=== PATIENT | female | born 1970 | race African-American/Black ===

== ENCOUNTER 2017-05-18 19:42 | Inpatient (IN) | payer MEDICARE, MEDICAID ==
[~2017-05-18] VITALS: Ht 157.5 cm; Wt 59.0 kg
[~2017-05-18 19:42] MED LIST: CINA30 PO; LABE300T PO; MINO2.5T19 PO; PANT40TA4 PO
[2017-05-18 21:13] LABS: BASOPHILS % 1.7 % (0.0-2.0); EOSINOPHILS % 7.7 % (0.0-5.0); HEMATOCRIT. 29.9 % (36.0-48.0); HEMOGLOBIN. 9.9 g/dL (12.0-16.0); LYMPHOCYTES % 8.2 % (20.0-50.0); MEAN CORPUSCULAR HEMOGLOBIN 31.5 pg (28.0-32.0); MEAN CORPUSCULAR VOLUME 94.9 fL (81.0-99.0); MEAN PLATELET VOLUME 7.4 fl (7.4-10.4); NEUTROPHILS % 72.4 % (40.0-76.0); PLATELET 187 x1000/uL (130-400); RED BLOOD CELL COUNT 3.15 mill/uL (4.2-5.4); RED CELL DISTRIBUTION WIDTH 15.8 % (11.6-14.6)
[2017-05-18 21:16] LABS: INR 1.2; PROTHROMBIN TIME 12.4 sec (9.4-11.6)
[2017-05-18 21:17] LABS: CHLORIDE 99 mEq/L (98-107)
[2017-05-18 21:22] LABS: CARBON DIOXIDE 29 mEq/L (21-32)
[2017-05-18 21:27] LABS: HCG SCREEN INDETERMINATE
[2017-05-18 21:28] LABS: TROPONIN I 0.45 ng/mL (0.00-0.04)
[2017-05-19] MEDS ORDERED: ASPIRIN 325MG TABLET PO ONE (01:00)
[2017-05-19 09:36] VITALS: BP 187/92
[2017-05-19] MEDS ORDERED: SEVE800T8 PO (10:25)
[2017-05-19] MEDS: ENOXAPARIN 30MG/0.3ML SYR SUBCUT SCH (10:30)
[2017-05-19] MEDS: DIPHENHYDRAMINE 50MG/ML VIAL IV PRN (11:07)
[2017-05-19 12:00] VITALS: BP 166/91
[2017-05-19 13:02] LABS: CREATINE KINASE MB FRACTION 3.2 ng/mL (0.5-3.6)
[2017-05-19 13:09] LABS: TROPONIN I 0.99 ng/mL (0.00-0.04)
[2017-05-19] MEDS: PANTOPRAZOLE 40MG DR TABLET PO SCH (13:43)
[2017-05-19] MEDS: MINOXIDIL 2.5MG TABLET PO SCH ×2 (14:39→21:15)
[2017-05-19] MEDS: AMLODIPINE 5MG TABLET PO SCH (14:39)
[2017-05-19 16:00] VITALS: BP 112/56
[2017-05-19] MEDS: CINACALCET HCL 30MG TABLET PO SCH (16:57)
[2017-05-19] MEDS: SEVELAMER CARBONATE 800 MG TABLET PO SCH (16:57)
[2017-05-19 20:00] VITALS: BP 134/71
[2017-05-19] MEDS: METOPROLOL TARTRATE 25MG TABLET PO SCH (21:13)
[2017-05-19] MEDS ORDERED: ONDANSETRON HCL 4MG/2ML VIAL IV PRN (21:45)
[2017-05-19] MEDS ORDERED: MORPHINE SULFATE 2 MG/ML CPJ (NOT FOR IM USE) IV PRN (21:45)
[2017-05-20] VITALS: BP 137/75
[2017-05-20] MEDS: AMLODIPINE 5MG TABLET PO SCH ×2 (00:35→08:29)
[2017-05-20] MEDS: DIPHENHYDRAMINE 50MG/ML VIAL IV PRN (00:36)
[2017-05-20 04:00] VITALS: BP 160/86
[2017-05-20 07:40] VITALS: BP 161/87
[2017-05-20] MEDS: PANTOPRAZOLE 40MG DR TABLET PO SCH (08:29)
[2017-05-20] MEDS: CINACALCET HCL 30MG TABLET PO SCH (08:29)
[2017-05-20] MEDS: SEVELAMER CARBONATE 800 MG TABLET PO SCH ×2 (08:29→12:59)
[2017-05-20] MEDS: ENOXAPARIN 30MG/0.3ML SYR SUBCUT SCH (08:30)
[2017-05-20] MEDS: METOPROLOL TARTRATE 25MG TABLET PO SCH (08:30)
[2017-05-20] MEDS: MINOXIDIL 2.5MG TABLET PO SCH (08:30)
[2017-05-20 08:31] LABS: BASOPHILS % 1.6 % (0.0-2.0); HEMATOCRIT. 29.3 % (36.0-48.0); HEMOGLOBIN. 9.6 g/dL (12.0-16.0); LYMPHOCYTES % 11.3 % (20.0-50.0); MEAN CORPUSCULAR HEMOGLOBIN 31.3 pg (28.0-32.0); MEAN PLATELET VOLUME 7.2 fl (7.4-10.4); MONOCYTES % 11.3 % (2.0-8.0); NEUTROPHILS % 66.8 % (40.0-76.0); PLATELET 216 x1000/uL (130-400); RED BLOOD CELL COUNT 3.08 mill/uL (4.2-5.4); RED CELL DISTRIBUTION WIDTH 15.6 % (11.6-14.6)
[2017-05-20] MEDS ORDERED: PANTOPRAZOLE 40MG DR TABLET PO SCH (09:00)
[2017-05-20 09:02] LABS: PHOSPHORUS 5.8 mg/dL (2.5-4.9)
[2017-05-20 09:26] LABS: TROPONIN I 0.9 ng/mL (0.00-0.04)
[2017-05-20 11:36] VITALS: BP 144/80
[2017-05-20 12:28] VITALS: BP 144/80
[2017-05-20] MEDS ORDERED: CALCIUM ACETATE 667MG CAPSULE PO SCH (12:40)
[2017-05-20 15:40] VITALS: BP 144/84
[2017-05-21] MEDS ORDERED: FAMOTIDINE 20MG TABLET PO SCH (09:00)
== END 2017-05-20 16:40 | disposition home or self-care (01) | DRG 308 ==
LOC: ER 19:42 → 8WST 05-19 00:58 → ENRESERV 05-19 07:02
PROVIDERS: ADMIT Internal Medicine Nephrology; ATTEND Internal Medicine Nephrology
DX: I47.1 Supraventricular tachycardia (principal); N18.6 End stage renal disease; I13.11 Hypertensive heart and chronic kidney disease without heart failure, with stage 5 chronic kidney disease, or end stage renal disease; I27.2 Other secondary pulmonary hypertension; M34.9 Systemic sclerosis, unspecified; N25.81 Secondary hyperparathyroidism of renal origin; J98.11 Atelectasis; Z60.2 Problems related to living alone; I44.1 Atrioventricular block, second degree; E83.39 Other disorders of phosphorus metabolism; D63.8 Anemia in other chronic diseases classified elsewhere; I73.00 Raynaud's syndrome without gangrene; M19.90 Unspecified osteoarthritis, unspecified site; Z99.2 Dependence on renal dialysis; Z88.8 Allergy status to other drugs, medicaments and biological substances; Z79.899 Other long term (current) drug therapy
CPT/HCPCS: 36415; 71010; 80048; 80053; 82553; 83735; 83970; 84100; 84484; 84703; 85025; 85610; 93005; 99285; J1200; J1650; J7050

== ENCOUNTER 2017-08-03 20:05 | Inpatient (IN) | payer MEDICARE, MEDICAID ==
[~2017-08-03] VITALS: Ht 157.5 cm; Wt 50.1 kg
[~2017-08-03 20:05] MED LIST changes: -LABE300T PO; +METO25TA6 PO; +SEVE800T8 PO
[2017-08-03] MEDS ORDERED: ASPIRIN 81MG TABLET PO ONE (20:45)
[2017-08-03] MEDS ORDERED: NITROGLYCERIN OINT 1GM/INCH UDPKT TD ONE (20:45)
[2017-08-03] MEDS ORDERED: LABETALOL HCL 20MG/4ML CARPUJECT IV ONE (20:45)
[2017-08-03 21:08] LABS: BASOPHILS % 2.9 % (0.0-2.0); EOSINOPHILS % 5.6 % (0.0-5.0); HEMATOCRIT. 28.7 % (36.0-48.0); HEMOGLOBIN. 9.6 g/dL (12.0-16.0); LYMPHOCYTES % 10.9 % (20.0-50.0); MEAN CORPUSCULAR HEMOGLOBIN 32.5 pg (28.0-32.0); MEAN CORPUSCULAR VOLUME 96.9 fL (81.0-99.0); MONOCYTES % 9.1 % (2.0-8.0); NEUTROPHILS % 71.5 % (40.0-76.0); PLATELET 280 x1000/uL (130-400); RED BLOOD CELL COUNT 2.96 mill/uL (4.2-5.4); RED CELL DISTRIBUTION WIDTH 16.9 % (11.6-14.6)
[2017-08-03 21:10] LABS: CHLORIDE 98 mEq/L (98-107)
[2017-08-03 21:14] LABS: INR 1.2; PROTHROMBIN TIME 12.6 sec (9.4-11.6)
[2017-08-03 21:20] LABS: CARBON DIOXIDE 33 mEq/L (21-32); ETHANOL BLOOD < 10 mg/dL
[2017-08-03 21:24] LABS: TROPONIN I 0.13 ng/mL (0.00-0.04)
[2017-08-03] MEDS ORDERED: LABETALOL HCL 20MG/4ML CARPUJECT IV NR (21:45)
[2017-08-03] MEDS ORDERED: DILTIAZEM HCL 125 MG in DEXT 5% WATER 100 ML IV ONE ×2 (21:45→22:00)
[2017-08-03 21:50] LABS: HCG SCREEN NEGATIVE
[2017-08-03 21:51] LABS: PARTIAL THROMBOPLASTIN TIME 103.6 sec (23.4-31.0)
[2017-08-03] MEDS ORDERED: DILTIAZEM HCL 5MG/ML 5ML VIAL IV ONE (23:00)
[2017-08-04] MEDS ORDERED: DIPHENHYDRAMINE 50MG/ML VIAL IV PRN (03:19)
[2017-08-04] MEDS ORDERED: MORPHINE SULFATE 2 MG/ML CPJ (NOT FOR IM USE) IV PRN (03:19)
[2017-08-04] MEDS ORDERED: LORAZEPAM 2MG/ML CPJ IV PRN (03:19)
[2017-08-04 06:26] LABS: CREATINE KINASE MB FRACTION 2.7 ng/mL (0.5-3.6)
[2017-08-04] MEDS ORDERED: DILTIAZEM HCL 125 MG in DEXT 5% WATER 100 ML IV ONE ×2 (06:45→17:00)
[2017-08-04] MEDS: ASPIRIN 81MG EC TABLET PO SCH (09:05)
[2017-08-04] MEDS: THIAMINE HCL 100MG TABLET PO SCH (09:05)
[2017-08-04 14:23] LABS: CREATINE KINASE MB FRACTION 2.6 ng/mL (0.5-3.6); PHOSPHORUS 4.9 mg/dL (2.5-4.9)
[2017-08-04] MEDS ORDERED: CINACALCET HCL 30MG TABLET PO NR (14:45)
[2017-08-04] MEDS ORDERED: PANTOPRAZOLE 40MG DR TABLET PO NR (14:45)
[2017-08-04] MEDS ORDERED: ENOXAPARIN 30MG/0.3ML SYR SUBCUT NR (14:45)
[2017-08-04] MEDS ORDERED: SEVELAMER CARBONATE 800 MG TABLET PO NR (14:45)
[2017-08-04] MEDS: HYDROCODONE/ACETAMINOPHEN 5/325MG TABLET PO PRN ×2 (15:45→21:21)
[2017-08-04] MEDS ORDERED: CLONIDINE 0.1MG TABLET PO PRN (16:15)
[2017-08-04 18:37] VITALS: BP 136/87
[2017-08-04 20:00] VITALS: BP 140/71
[2017-08-04 22:00] VITALS: BP 127/71
[2017-08-04] MEDS: DILTIAZEM HCL 125 MG in SODIUM CHLORIDE 0.9% 100 ML IV SCH (22:44)
[2017-08-05] VITALS (11 sets, daily range): BP systolic 113–168; BP diastolic 62–106
[2017-08-05] MEDS: PANTOPRAZOLE 40MG DR TABLET PO SCH (06:48)
[2017-08-05 07:12] LABS: BASOPHILS % 2.4 % (0.0-2.0); EOSINOPHILS % 6.9 % (0.0-5.0); HEMATOCRIT. 28.7 % (36.0-48.0); HEMOGLOBIN. 9.6 g/dL (12.0-16.0); LYMPHOCYTES % 9.8 % (20.0-50.0); MEAN CORPUSCULAR HEMOGLOBIN 32.5 pg (28.0-32.0); MEAN CORPUSCULAR VOLUME 96.9 fL (81.0-99.0); MEAN PLATELET VOLUME 7.6 fl (7.4-10.4); MONOCYTES % 7.7 % (2.0-8.0); NEUTROPHILS % 73.2 % (40.0-76.0); PLATELET 239 x1000/uL (130-400); RED BLOOD CELL COUNT 2.96 mill/uL (4.2-5.4); RED CELL DISTRIBUTION WIDTH 16.6 % (11.6-14.6)
[2017-08-05] MEDS: DILTIAZEM HCL 125 MG in SODIUM CHLORIDE 0.9% 100 ML IV SCH (08:15)
[2017-08-05] MEDS: SEVELAMER CARBONATE 800 MG TABLET PO SCH ×3 (08:20→17:37)
[2017-08-05] MEDS: CINACALCET HCL 30MG TABLET PO SCH ×2 (08:20→17:37)
[2017-08-05] MEDS: ASPIRIN 81MG EC TABLET PO SCH (08:20)
[2017-08-05] MEDS: THIAMINE HCL 100MG TABLET PO SCH (08:20)
[2017-08-05] MEDS: ENOXAPARIN 30MG/0.3ML SYR SUBCUT SCH (08:21)
[2017-08-05 08:27] LABS: TROPONIN I 0.14 ng/mL (0.00-0.04)
[2017-08-05 08:46] LABS: TROPONIN I 0.15 ng/mL (0.00-0.04)
[2017-08-05 11:33] LABS: *AMPHETAMINES SCREEN URINE NEGATIVE (NEGATIVE); *BARBITURATES SCREEN URINE NEGATIVE (NEGATIVE); *BENZODIAZEPINES SCREEN URINE NEGATIVE (NEGATIVE); *COCAINE SCREEN URINE NEGATIVE (NEGATIVE); CANNABINOID URINE SCREEN NEGATIVE (NEGATIVE); METHADONE URINE SCREEN NEGATIVE (NEGATIVE); OPIATES URINE SCREEN NEGATIVE (NEGATIVE); PHENCYCLIDINE URINE SCREEN NEGATIVE (NEGATIVE)
[2017-08-05] MEDS: DILTIAZEM HCL 60MG TABLET PO SCH (17:37)
[2017-08-05] MEDS: HYDROCODONE/ACETAMINOPHEN 5/325MG TABLET PO PRN (21:20)
[2017-08-06] VITALS (12 sets, daily range): BP systolic 133–176; BP diastolic 82–105
[2017-08-06] MEDS: DILTIAZEM HCL 60MG TABLET PO SCH ×4 (00:36→17:00)
[2017-08-06] MEDS: PANTOPRAZOLE 40MG DR TABLET PO SCH (06:23)
[2017-08-06 07:18] LABS: BASOPHILS % 2.5 % (0.0-2.0); EOSINOPHILS % 9.2 % (0.0-5.0); HEMATOCRIT. 25.2 % (36.0-48.0); HEMOGLOBIN. 8.4 g/dL (12.0-16.0); LYMPHOCYTES % 11.6 % (20.0-50.0); MEAN CORPUSCULAR HEMOGLOBIN 32.1 pg (28.0-32.0); MEAN PLATELET VOLUME 7.4 fl (7.4-10.4); MONOCYTES % 9.4 % (2.0-8.0); NEUTROPHILS % 67.3 % (40.0-76.0); PLATELET 209 x1000/uL (130-400); RED CELL DISTRIBUTION WIDTH 16.5 % (11.6-14.6)
[2017-08-06] MEDS: SEVELAMER CARBONATE 800 MG TABLET PO SCH ×3 (07:53→16:59)
[2017-08-06] MEDS: ONDANSETRON HCL 4MG/2ML VIAL IV PRN (07:58)
[2017-08-06] MEDS: ASPIRIN 81MG EC TABLET PO SCH (08:00)
[2017-08-06] MEDS: CINACALCET HCL 30MG TABLET PO SCH ×2 (08:01→17:00)
[2017-08-06] MEDS: THIAMINE HCL 100MG TABLET PO SCH (08:01)
[2017-08-06] MEDS: ENOXAPARIN 30MG/0.3ML SYR SUBCUT SCH (08:03)
[2017-08-07] VITALS (12 sets, daily range): BP systolic 148–177; BP diastolic 87–127
[2017-08-07] MEDS: ONDANSETRON HCL 4MG/2ML VIAL IV PRN ×2 (00:26→14:22)
[2017-08-07] MEDS ORDERED: LORAZEPAM 0.5MG TABLET PO PRN (03:30)
[2017-08-07 06:18] LABS: EOSINOPHILS % 8.5 % (0.0-5.0); HEMATOCRIT. 26.1 % (36.0-48.0); HEMOGLOBIN. 8.8 g/dL (12.0-16.0); LYMPHOCYTES % 9.6 % (20.0-50.0); MEAN CORPUSCULAR HEMOGLOBIN 32.6 pg (28.0-32.0); MEAN CORPUSCULAR VOLUME 96.4 fL (81.0-99.0); MEAN PLATELET VOLUME 7.7 fl (7.4-10.4); MONOCYTES % 8.4 % (2.0-8.0); NEUTROPHILS % 71.5 % (40.0-76.0); PLATELET 198 x1000/uL (130-400); RED BLOOD CELL COUNT 2.71 mill/uL (4.2-5.4); RED CELL DISTRIBUTION WIDTH 16.6 % (11.6-14.6)
[2017-08-07] MEDS: SEVELAMER CARBONATE 800 MG TABLET PO SCH ×3 (07:40→16:52)
[2017-08-07] MEDS: FAMOTIDINE 20MG TABLET PO SCH (08:04)
[2017-08-07] MEDS: THIAMINE HCL 100MG TABLET PO SCH (08:04)
[2017-08-07] MEDS: CINACALCET HCL 30MG TABLET PO SCH ×2 (08:04→16:52)
[2017-08-07] MEDS ORDERED: METOPROLOL TARTRATE 25MG TABLET PO SCH (09:00)
[2017-08-07] MEDS: DILTIAZEM HCL 120MG CAPSULE CD 24HR PO SCH ×2 (10:29→21:13)
[2017-08-07] MEDS: METOPROLOL TARTRATE 50MG TABLET PO SCH (21:14)
[2017-08-08] VITALS (11 sets, daily range): BP systolic 143–172; BP diastolic 70–106
[2017-08-08 07:42] LABS: BASOPHILS % 1.9 % (0.0-2.0); EOSINOPHILS % 7.3 % (0.0-5.0); HEMATOCRIT. 27.7 % (36.0-48.0); HEMOGLOBIN. 9.2 g/dL (12.0-16.0); LYMPHOCYTES % 7.8 % (20.0-50.0); MEAN CORPUSCULAR HEMOGLOBIN 32.4 pg (28.0-32.0); MEAN CORPUSCULAR VOLUME 97.5 fL (81.0-99.0); MONOCYTES % 8.9 % (2.0-8.0); NEUTROPHILS % 74.1 % (40.0-76.0); PLATELET 206 x1000/uL (130-400); RED BLOOD CELL COUNT 2.84 mill/uL (4.2-5.4); RED CELL DISTRIBUTION WIDTH 16.9 % (11.6-14.6)
[2017-08-08] MEDS: CINACALCET HCL 30MG TABLET PO SCH ×2 (08:50→17:48)
[2017-08-08] MEDS: THIAMINE HCL 100MG TABLET PO SCH (08:50)
[2017-08-08] MEDS: DILTIAZEM HCL 120MG CAPSULE CD 24HR PO SCH ×2 (08:51→20:51)
[2017-08-08] MEDS: SEVELAMER CARBONATE 800 MG TABLET PO SCH ×3 (08:51→17:20)
[2017-08-08] MEDS: METOPROLOL TARTRATE 50MG TABLET PO SCH ×2 (08:52→20:51)
[2017-08-08] MEDS: FAMOTIDINE 20MG TABLET PO SCH (08:52)
[2017-08-08] MEDS: ONDANSETRON HCL 4MG/2ML VIAL IV PRN (13:35)
[2017-08-08] MEDS ORDERED: ACETAMINOPHEN 650MG/20.3ML UDC PO NR (17:30)
[2017-08-09] VITALS (10 sets, daily range): BP systolic 134–163; BP diastolic 67–99
[2017-08-09] MEDS: ONDANSETRON HCL 4MG/2ML VIAL IV PRN ×2 (03:00→15:42)
[2017-08-09] MEDS: ACETAMINOPHEN 650MG/20.3ML UDC PO PRN (03:01)
[2017-08-09] MEDS: SEVELAMER CARBONATE 800 MG TABLET PO SCH ×4 (07:20→17:21)
[2017-08-09] MEDS: DILTIAZEM HCL 120MG CAPSULE CD 24HR PO SCH ×2 (10:15→20:16)
[2017-08-09] MEDS: FAMOTIDINE 20MG TABLET PO SCH (10:15)
[2017-08-09] MEDS: THIAMINE HCL 100MG TABLET PO SCH (10:15)
[2017-08-09] MEDS: CINACALCET HCL 30MG TABLET PO SCH ×2 (10:16→17:00)
[2017-08-09] MEDS: METOPROLOL TARTRATE 50MG TABLET PO SCH ×2 (10:16→20:16)
[2017-08-09] MEDS: DIPHENOXYLATE/ATROPINE 2.5/0.025MG TABLET PO PRN (20:16)
[2017-08-10] VITALS (7 sets, daily range): BP systolic 145–198; BP diastolic 76–96
[2017-08-10] MEDS: CINACALCET HCL 30MG TABLET PO SCH ×2 (08:46→17:00)
[2017-08-10] MEDS: SEVELAMER CARBONATE 800 MG TABLET PO SCH ×3 (08:46→18:10)
[2017-08-10] MEDS: FAMOTIDINE 20MG TABLET PO SCH (08:46)
[2017-08-10] MEDS: THIAMINE HCL 100MG TABLET PO SCH (08:46)
[2017-08-10] MEDS: METOPROLOL TARTRATE 50MG TABLET PO SCH ×2 (09:00→20:12)
[2017-08-10] MEDS: DILTIAZEM HCL 120MG CAPSULE CD 24HR PO SCH ×2 (09:00→20:12)
[2017-08-10] MEDS: DIPHENOXYLATE/ATROPINE 2.5/0.025MG TABLET PO PRN (11:30)
[2017-08-10] MEDS: METRONIDAZOLE 500 MG PREMIX 100 ML IV SCH ×2 (14:00→20:11)
[2017-08-10] MEDS ORDERED: METRONIDAZOLE 500MG TABLET PO SCH (14:00)
[2017-08-10] MEDS: ONDANSETRON HCL 4MG/2ML VIAL IV PRN (20:11)
[2017-08-11] VITALS: BP 158/86
[2017-08-11] MEDS: ACETAMINOPHEN 650MG/20.3ML UDC PO PRN ×2 (02:19→12:03)
[2017-08-11] MEDS: DIPHENOXYLATE/ATROPINE 2.5/0.025MG TABLET PO PRN ×3 (02:19→21:09)
[2017-08-11] MEDS: ONDANSETRON HCL 4MG/2ML VIAL IV PRN ×3 (02:24→21:09)
[2017-08-11 04:00] VITALS: BP 153/82
[2017-08-11] MEDS: METRONIDAZOLE 500 MG PREMIX 100 ML IV SCH ×2 (05:35→14:21)
[2017-08-11 08:00] VITALS: BP 161/76
[2017-08-11] MEDS: DILTIAZEM HCL 120MG CAPSULE CD 24HR PO SCH ×2 (09:22→20:48)
[2017-08-11] MEDS: THIAMINE HCL 100MG TABLET PO SCH (09:23)
[2017-08-11] MEDS: FAMOTIDINE 20MG TABLET PO SCH (09:23)
[2017-08-11] MEDS: SEVELAMER CARBONATE 800 MG TABLET PO SCH ×3 (09:23→17:52)
[2017-08-11] MEDS: METOPROLOL TARTRATE 50MG TABLET PO SCH ×2 (09:23→20:48)
[2017-08-11] MEDS: CINACALCET HCL 30MG TABLET PO SCH ×2 (09:24→17:00)
[2017-08-11 12:00] VITALS: BP 154/83
[2017-08-11 16:00] VITALS: BP 139/84
[2017-08-11 18:30] LABS: HEMATOCRIT. 38.4 % (36.0-48.0); HEMOGLOBIN. 12.3 g/dL (12.0-16.0); MEAN CORPUSCULAR HEMOGLOBIN 32.3 pg (28.0-32.0); MEAN CORPUSCULAR VOLUME 100.9 fL (81.0-99.0); MEAN PLATELET VOLUME 7.3 fl (7.4-10.4); PLATELET 279 x1000/uL (130-400); RED BLOOD CELL COUNT 3.81 mill/uL (4.2-5.4); RED CELL DISTRIBUTION WIDTH 16.8 % (11.6-14.6)
[2017-08-11 20:20] VITALS: BP 134/71
[2017-08-11] MEDS: MAGNESIUM/ALUMINUM HYDROXIDE/SIMETHICONE 30ML UDC PO PRN (21:41)
[2017-08-12] VITALS: BP 127/76
[2017-08-12] MEDS: ONDANSETRON HCL 4MG/2ML VIAL IV PRN (01:38)
[2017-08-12] MEDS: METRONIDAZOLE 500 MG PREMIX 100 ML IV SCH ×2 (01:39→13:38)
[2017-08-12] MEDS: MAGNESIUM/ALUMINUM HYDROXIDE/SIMETHICONE 30ML UDC PO PRN (05:42)
[2017-08-12 07:10] LABS: PLATELET ESTIMATE NORMAL
[2017-08-12 08:00] VITALS: BP 146/90
[2017-08-12] MEDS: METOPROLOL TARTRATE 50MG TABLET PO SCH ×2 (09:27→20:34)
[2017-08-12] MEDS: CINACALCET HCL 30MG TABLET PO SCH ×2 (09:27→17:00)
[2017-08-12] MEDS: DIPHENOXYLATE/ATROPINE 2.5/0.025MG TABLET PO PRN (09:27)
[2017-08-12] MEDS: FAMOTIDINE 20MG TABLET PO SCH (09:27)
[2017-08-12] MEDS: DILTIAZEM HCL 120MG CAPSULE CD 24HR PO SCH (09:27)
[2017-08-12] MEDS: THIAMINE HCL 100MG TABLET PO SCH (09:27)
[2017-08-12] MEDS: SEVELAMER CARBONATE 800 MG TABLET PO SCH ×3 (09:27→17:46)
[2017-08-12 12:00] VITALS: BP 129/75
[2017-08-12] MEDS: DILTIAZEM HCL 90MG TABLET PO SCH ×2 (13:39→21:59)
[2017-08-12 16:00] VITALS: BP 123/73
[2017-08-12 20:00] VITALS: BP 134/47
[2017-08-13] VITALS: BP 105/62
[2017-08-13] MEDS: METRONIDAZOLE 500 MG PREMIX 100 ML IV SCH ×2 (01:47→14:03)
[2017-08-13 04:00] VITALS: BP 118/72
[2017-08-13] MEDS: DILTIAZEM HCL 90MG TABLET PO SCH ×3 (05:00→21:50)
[2017-08-13] MEDS: DIPHENOXYLATE/ATROPINE 2.5/0.025MG TABLET PO PRN (05:00)
[2017-08-13 07:29] LABS: HEMATOCRIT. 31.2 % (36.0-48.0); HEMOGLOBIN. 10.1 g/dL (12.0-16.0); MEAN CORPUSCULAR HEMOGLOBIN 30.7 pg (28.0-32.0); MEAN CORPUSCULAR VOLUME 95.3 fL (81.0-99.0); MEAN PLATELET VOLUME 7.6 fl (7.4-10.4); PLATELET 283 x1000/uL (130-400); RED BLOOD CELL COUNT 3.28 mill/uL (4.2-5.4); RED CELL DISTRIBUTION WIDTH 16.9 % (11.6-14.6)
[2017-08-13 08:00] VITALS: BP 102/51
[2017-08-13] MEDS: THIAMINE HCL 100MG TABLET PO SCH (08:36)
[2017-08-13] MEDS: CINACALCET HCL 30MG TABLET PO SCH ×2 (08:36→16:43)
[2017-08-13] MEDS: FAMOTIDINE 20MG TABLET PO SCH (08:36)
[2017-08-13] MEDS: SEVELAMER CARBONATE 800 MG TABLET PO SCH ×4 (08:36→18:43)
[2017-08-13] MEDS: METOPROLOL TARTRATE 50MG TABLET PO SCH ×2 (08:37→21:51)
[2017-08-13 11:53] LABS: PLATELET ESTIMATE NORMAL
[2017-08-13 12:00] VITALS: BP 105/61
[2017-08-13] MEDS: AMIODARONE HCL 200 MG TABLET PO SCH ×2 (14:02→21:49)
[2017-08-13 16:00] VITALS: BP 122/80
[2017-08-13 20:00] VITALS: BP 155/73
[2017-08-13] MEDS: ONDANSETRON HCL 4MG/2ML VIAL IV PRN (22:15)
[2017-08-14] VITALS: BP 125/65
[2017-08-14] MEDS: METRONIDAZOLE 500 MG PREMIX 100 ML IV SCH ×2 (01:44→14:13)
[2017-08-14 04:00] VITALS: BP 120/61
[2017-08-14] MEDS: AMIODARONE HCL 200 MG TABLET PO SCH ×2 (05:24→14:11)
[2017-08-14] MEDS: DILTIAZEM HCL 90MG TABLET PO SCH ×2 (05:24→14:11)
[2017-08-14 08:00] VITALS: BP 148/91
[2017-08-14] MEDS: FAMOTIDINE 20MG TABLET PO SCH (08:27)
[2017-08-14] MEDS: SEVELAMER CARBONATE 800 MG TABLET PO SCH ×2 (08:27→13:10)
[2017-08-14] MEDS: CINACALCET HCL 30MG TABLET PO SCH ×2 (08:27→17:00)
[2017-08-14] MEDS: METOPROLOL TARTRATE 50MG TABLET PO SCH (08:28)
[2017-08-14] MEDS: THIAMINE HCL 100MG TABLET PO SCH (08:28)
[2017-08-14 12:00] VITALS: BP 130/83
[2017-08-14 12:46] VITALS: BP 130/83
== END 2017-08-14 17:48 | disposition home or self-care (01) | DRG 371 ==
LOC: ER 20:05 → EDBEDREQ 21:53 → EDBEDREQSVC 21:53 → EDBEDREQTM 21:53 → SUPCPDRO 23:46 → 3WST 08-04 00:46 → EDBEDREQSVC 08-04 00:49 → EDBEDREQTM 08-04 00:49 → SUPCPDRO 08-04 08:21 → EDBEDREQSVC 08-04 17:01 → ENRESERV 08-04 17:20 → 7WST 08-09 12:57
PROVIDERS: ADMIT Internal Medicine Nephrology; ATTEND Internal Medicine Nephrology
PROC: 5A1D70Z Performance of Urinary Filtration, Intermittent, Less than 6 Hours Per Day (ICD-10-PCS; principal; 2017-08-03)
PROC: 5A1D70Z Performance of Urinary Filtration, Intermittent, Less than 6 Hours Per Day (ICD-10-PCS; 2017-08-05)
PROC: 5A1D70Z Performance of Urinary Filtration, Intermittent, Less than 6 Hours Per Day (ICD-10-PCS; 2017-08-09)
PROC: 5A1D70Z Performance of Urinary Filtration, Intermittent, Less than 6 Hours Per Day (ICD-10-PCS; 2017-08-10)
DX: A04.72 Enterocolitis due to Clostridium difficile, not specified as recurrent (principal); N18.6 End stage renal disease; I13.2 Hypertensive heart and chronic kidney disease with heart failure and with stage 5 chronic kidney disease, or end stage renal disease; E43 Unspecified severe protein-calorie malnutrition; I47.2 Ventricular tachycardia; M34.9 Systemic sclerosis, unspecified; I27.21 Secondary pulmonary arterial hypertension; I31.3 Pericardial effusion (noninflammatory); I47.1 Supraventricular tachycardia; N25.81 Secondary hyperparathyroidism of renal origin; Z99.2 Dependence on renal dialysis; I73.00 Raynaud's syndrome without gangrene; Z88.8 Allergy status to other drugs, medicaments and biological substances; M19.90 Unspecified osteoarthritis, unspecified site; I08.0 Rheumatic disorders of both mitral and aortic valves; D63.8 Anemia in other chronic diseases classified elsewhere; I16.0 Hypertensive urgency; I50.9 Heart failure, unspecified; I49.9 Cardiac arrhythmia, unspecified; Z59.0 Homelessness; Z79.899 Other long term (current) drug therapy; Z82.49 Family history of ischemic heart disease and other diseases of the circulatory system; Z91.19 Patient's noncompliance with other medical treatment and regimen; Z68.20 Body mass index [BMI] 20.0-20.9, adult
CPT/HCPCS: 36415; 71010; 74176; 80048; 80053; 80061; 80076; 80305; 82550; 82553; 82962; 83036; 83605; 83735; 83880; 84100; 84443; 84484; 84703; 85025; 85379; 85610; 85651; 85730; 87040; 87493; 93005; 93306; 93971; 99285; C1893; G0482; J1200; J1650; J2270; J2405; J3490; J7030; J7040; J7050; J7060

== ENCOUNTER 2017-08-25 17:48 | Emergency (ER) | payer MEDICARE, MEDICAID ==
[~2017-08-25] VITALS: Ht 162.6 cm; Wt 50.0 kg
[2017-08-25 19:19] LABS: HEMATOCRIT. 23.9 % (36.0-48.0); HEMOGLOBIN. 7.7 g/dL (12.0-16.0); MEAN CORPUSCULAR HEMOGLOBIN 30.8 pg (28.0-32.0); MEAN CORPUSCULAR VOLUME 95.7 fL (81.0-99.0); MEAN PLATELET VOLUME 6.8 fl (7.4-10.4); PLATELET 355 x1000/uL (130-400); RED BLOOD CELL COUNT 2.49 mill/uL (4.2-5.4); RED CELL DISTRIBUTION WIDTH 17.7 % (11.6-14.6)
[2017-08-25 19:22] LABS: CARBON DIOXIDE 20 mEq/L (21-32); CHLORIDE 108 mEq/L (98-107)
[2017-08-25 19:44] LABS: PLATELET ESTIMATE NORMAL
[2017-08-25] MEDS ORDERED: POTASSIUM CHLORIDE 20MEQ TABLET SR PO ONE (20:00)
[2017-08-25] MEDS ORDERED: DILTIAZEM HCL 30MG TABLET PO ONE (21:00)
[2017-08-25] MEDS ORDERED: METOPROLOL TARTRATE 25MG TABLET PO ONE (21:00)
[2017-08-25] MEDS ORDERED: ONDANSETRON HCL 4MG/2ML VIAL IV ONE (21:00)
[2017-08-25] MEDS ORDERED: POTASSIUM CHLORIDE 20MEQ/PACKET PO ONE (21:15)
[2017-08-25 21:30] VITALS: BP 140/80
== END 2017-08-25 21:50 | disposition home or self-care (01) ==
LOC: ER 18:04
DX: I47.1 Supraventricular tachycardia (principal); D64.9 Anemia, unspecified; E87.6 Hypokalemia; E83.51 Hypocalcemia; I12.0 Hypertensive chronic kidney disease with stage 5 chronic kidney disease or end stage renal disease; N18.6 End stage renal disease; Z99.2 Dependence on renal dialysis; Z88.8 Allergy status to other drugs, medicaments and biological substances
CPT/HCPCS: 36415; 71010; 80053; 85025; 93005; 96374; 99285; J2405